=== PATIENT | female | born 1955 | race Caucasian/White ===

== ENCOUNTER → 2018-05-18 | Outpatient (CLI) | payer BC ==
[~2018-05-18] MED LIST: AMLO10TA6 PO; ESTR0.5T PO; LISI40TA PO
[2018-05-18 09:24] LABS: ALANINE AMINOTRANSFERASE 20 U/L (12-78); ALBUMIN 4.2 g/dL (3.4-5.0); ANION GAP 6 mmol/L (5-15); CALCIUM 10.4 mg/dL (8.5-10.1); CHLORIDE 106 mmol/L (98-107)
[2018-05-18 09:27] LABS: ALKALINE PHOSPHATASE 57 U/L (45-117); TOTAL PROTEIN 7.7 g/dL (6.4-8.2)
== END | disposition home or self-care (01) ==
LOC: STAR 08:16
PROVIDERS: ATTEND Surgery
DX: Z01.818 Encounter for other preprocedural examination (principal)
CPT/HCPCS: 36415; 80053; 93005

== ENCOUNTER 2018-05-23 10:57 | Day surgery (SDC) | payer BC ==
[2018-05-18 08:45] VITALS: BP 126/87
[~2018-05-23] VITALS: Ht 161.3 cm; Wt 58.4 kg
[~2018-05-23 10:57] MED LIST changes: +BUPIVACAINE/PF-EPI 0.5% 1:200K ONE
[2018-05-23] MEDS ORDERED: ROCURONIUM 10MG/ML,5ML ONE (11:13)
[2018-05-23] MEDS ORDERED: PHENYLEPHRINE 10 MG/ML ONE (11:13)
[2018-05-23] MEDS ORDERED: EPHEDRINE 50 MG/ML, 1ML ONE (11:13)
[2018-05-23] MEDS ORDERED: LACTATED RINGERS 1,000 ML IV SCH (11:30)
[2018-05-23] MEDS ORDERED: SUCCINYLCHOLINE 20 MG/ML, 10ML ONE (12:09)
[2018-05-23] MEDS ORDERED: DEXAMETHASONE 4 MG/ML, 1ML ONE ×2 (12:09)
[2018-05-23] MEDS ORDERED: PROPOFOL 10 MG/ML, 20ML ONE (12:09)
[2018-05-23] MEDS ORDERED: FENTANYL PF 100 MCG/2ML ONE (12:09)
[2018-05-23] MEDS ORDERED: MIDAZOLAM 1 MG/ML, 2ML ONE (12:09)
[2018-05-23] MEDS ORDERED: PROCHLORPERAZINE 5 MG/ML, 2ML IV PRN (12:30)
[2018-05-23] MEDS ORDERED: MIDAZOLAM 1 MG/ML, 2ML IV PRN (12:30)
[2018-05-23] MEDS ORDERED: LORazepam 2 MG/ML, 1ML IVPush PRN (12:30)
[2018-05-23] MEDS ORDERED: LABETALOL 5MG/ML, 20ML IV PRN (12:30)
[2018-05-23] MEDS ORDERED: DIPHENHYDRAMINE 50 MG/ML, 1ML IVPush PRN (12:30)
[2018-05-23] MEDS ORDERED: FENTANYL PF 100 MCG/2ML IV PRN (12:30)
[2018-05-23] MEDS ORDERED: MEPERIDINE/PF 25MG/0.5ML IVPush PRN (12:30)
[2018-05-23] MEDS ORDERED: HYDROmorphone 1 MG/ML, 1ML IV PRN (12:30)
[2018-05-23] MEDS ORDERED: ACETAMINOPHEN 325 MG TABLET PO PRN (12:30)
[2018-05-23] MEDS ORDERED: EPHEDRINE 50 MG/ML, 1ML IVPush PRN (12:30)
[2018-05-23] MEDS ORDERED: DIAZEPAM 5 MG/ML, 2ML IVPush PRN (12:30)
[2018-05-23] MEDS ORDERED: ALBUTEROL SULFATE 2.5 MG/3 ML NPPB PRN (12:30)
[2018-05-23] MEDS ORDERED: METOPROLOL 1 MG/ML, 5ML IV PRN (12:30)
[2018-05-23] MEDS ORDERED: hydrALAzine 20 MG/ML, 1ML IV PRN (12:30)
[2018-05-23] MEDS ORDERED: OXYcodone 5 MG/5 ML ORAL.SOL UDC PO PRN (12:30)
[2018-05-23] MEDS ORDERED: MORPHINE SULFATE 4 MG/ML, 1ML IVPush PRN (12:30)
[2018-05-23] MEDS ORDERED: ACETAMINOPHEN 650 MG/20.3 ML UDC ONE (15:01)
[2018-05-23 16:00] LABS: 10MIN %DROP IOPTH 96 %; 5MIN %DROP IOPTH 96 %; IOPTH BASELINE 7646 pg/mL; SAMPLE 5 %DROP IOPTH 98 %
== END 2018-05-23 16:30 | disposition home or self-care (01) ==
LOC: OUT 10:57
PROVIDERS: ATTEND Surgery
DX: E21.0 Primary hyperparathyroidism (principal); E03.9 Hypothyroidism, unspecified; E83.52 Hypercalcemia; I10 Essential (primary) hypertension; Z87.39 Personal history of other diseases of the musculoskeletal system and connective tissue; Z98.890 Other specified postprocedural states; Z90.710 Acquired absence of both cervix and uterus; Z72.89 Other problems related to lifestyle; Z88.6 Allergy status to analgesic agent; Z88.8 Allergy status to other drugs, medicaments and biological substances
CPT/HCPCS: 36415; 60500; 83970; 88305; C1760; J0330; J1100; J2250; J2370; J2704; J3010; J7120